=== PATIENT | male | born 1975 | race American Indian/Alaskan Native ===

== ENCOUNTER 2016-09-04 18:45 | Emergency (ER) | payer OTHER ==
[2016-09-04 19:52] VITALS: BP 139/89
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
== END 2016-09-05 00:18 | disposition home or self-care (01) ==
LOC: ED 18:45
DX: M79.1 Myalgia (principal); F17.200 Nicotine dependence, unspecified, uncomplicated; V49.49XA Driver injured in collision with other motor vehicles in traffic accident, initial encounter; Y93.9 Activity, unspecified; Y92.9 Unspecified place or not applicable; Y99.9 Unspecified external cause status
CPT/HCPCS: 99282

== ENCOUNTER 2016-10-22 07:57 | Emergency (ER) | payer SELFPAY ==
[2016-10-22 08:15] VITALS: BP 126/93
[2016-10-22] MEDS ORDERED: TETRACAINE 0.5% OU PRN (08:39)
[2016-10-22] MEDS ORDERED: FUL-GLO OP ONE (08:39)
== END 2016-10-22 11:11 | disposition home or self-care (01) ==
LOC: ED 07:57
DX: T16.1XXA Foreign body in right ear, initial encounter (principal); F17.200 Nicotine dependence, unspecified, uncomplicated; Z91.013 Allergy to seafood; W45.8XXA Other foreign body or object entering through skin, initial encounter; Y93.89 Activity, other specified; Y99.8 Other external cause status; Y92.89 Other specified places as the place of occurrence of the external cause